=== PATIENT | male | born 1935 | race Caucasian/White ===

== ENCOUNTER 2022-03-01 15:59 | Inpatient (IN) ==
[2022-03-01] MEDS ORDERED: ONDANSETRON 4 MG/2 ML VIAL IV ONE (18:06)
[2022-03-01] MEDS ORDERED: HYDROmorphone 1 MG/1 ML SYRINGE IV STA (18:06)
[2022-03-01] MEDS ORDERED: HYDROmorphone 1 MG/1 ML SYRINGE IV PRN (20:13)
[2022-03-01] MEDS ORDERED: ACETAMINOPHEN 325 MG TABLET PO PRN (20:13)
[2022-03-01] MEDS ORDERED: ONDANSETRON 4 MG/2 ML VIAL IV PRN (20:13)
[2022-03-01] MEDS: LACTATED RINGERS 1,000 ML IV SCH (20:35)
[2022-03-02] MEDS: carvediloL 12.5 MG TABLET PO SCH ×3 (01:02→21:06)
[2022-03-02] MEDS: ATORVASTATIN 40 MG TABLET PO SCH ×2 (01:02→21:06)
[2022-03-02] MEDS: PANTOPRAZOLE 40 MG TABLET PO SCH (09:06)
[2022-03-02] MEDS: FUROSEMIDE 40 MG TABLET PO SCH (09:06)
[2022-03-02] MEDS: ASPIRIN EC 81 MG TABLET PO SCH (09:06)
[2022-03-02 14:02] LABS: Arterial Base Excess iSTAT 1 MMOL/L (-2.5-2.5); Arterial Bicarbonate iSTAT 25.6 MMOL/L (20-26); Arterial O2 Saturation iSTAT 92 % (95-100); Arterial PCO2 iSTAT 40 MM HG (35-48); Arterial PO2 iSTAT 64 MM HG (80-95); Arterial Total CO2 iSTAT 27 MMO/L (23-27)
[2022-03-03 06:02] LABS: Basophils % 0.5 % (0.0-0.8); Eosinophils # 0.1 10*3/uL (0.0-0.87); Eosinophils % 0.8 % (0.00-10.9); Hematocrit 37.2 VOL% (42.0-52.0); Hemoglobin 12.3 GM/DL (14.0-18.0); Immature Granulocytes % 0.4 %; Immature Granulocytes Absolute 0.03 #; Lymphocytes # 1.3 10*3/uL (1.4-4.0); Lymphocytes % 18.3 % (21.2-54.2); Mean Corpuscular HGB Conc 33.1 GM/DL (32-36); Mean Platelet Volume 11.4 FL (9.6-12.0); Monocytes # 0.8 10*3/uL (0.11-0.8); Platelet Count 135 T/CUMM (130-400); Red Blood Count 3.72 MC/CUMM (3.8-5.5); Red Cell Distribution Width 13.5 % (9.3-17.3); White Blood Count 7.3 T/CUMM (4-12)
[2022-03-03 06:09] LABS: Osmolality,Calculated 278.7 MOS/KG (273-304); Potassium 3.8 MMOL/L (3.5-5.1)
[2022-03-03] MEDS: FUROSEMIDE 40 MG TABLET PO SCH (09:18)
[2022-03-03] MEDS: carvediloL 12.5 MG TABLET PO SCH ×2 (09:18→21:39)
[2022-03-03] MEDS: PANTOPRAZOLE 40 MG TABLET PO SCH (09:18)
[2022-03-03] MEDS: ASPIRIN EC 81 MG TABLET PO SCH (09:18)
[2022-03-03] MEDS: KETOROLAC 15 MG/1 ML VIAL IV SCH ×3 (09:19→21:39)
[2022-03-03] MEDS: LACTATED RINGERS 1,000 ML IV SCH ×2 (09:38→12:56)
[2022-03-03 11:34] LABS: Anisocytosis 1+
[2022-03-03 11:35] LABS: Platelet Estimate Adequate
[2022-03-03] MEDS: ATORVASTATIN 40 MG TABLET PO SCH (21:39)
[2022-03-04] MEDS: KETOROLAC 15 MG/1 ML VIAL IV SCH ×4 (04:11→20:06)
[2022-03-04 05:41] LABS: Basophils # 0.1 10*3/uL (0.0-0.2); Basophils % 0.7 % (0.0-0.8); Eosinophils # 0.1 10*3/uL (0.0-0.87); Eosinophils % 0.8 % (0.00-10.9); Hematocrit 34.1 VOL% (42.0-52.0); Hemoglobin 11.6 GM/DL (14.0-18.0); Immature Granulocytes % 0.5 %; Immature Granulocytes Absolute 0.04 #; Lymphocytes # 1.3 10*3/uL (1.4-4.0); Lymphocytes % 16.8 % (21.2-54.2); Mean Corpuscular Volume 98.8 FL (87-102); Mean Platelet Volume 11.5 FL (9.6-12.0); Monocytes # 0.8 10*3/uL (0.11-0.8); Monocytes % 10.4 % (1.7-12.7); Neutrophils % 70.8 % (38.7-73.9); Platelet Count 133 T/CUMM (130-400); Red Blood Count 3.45 MC/CUMM (3.8-5.5); Red Cell Distribution Width 13.2 % (9.3-17.3); White Blood Count 7.4 T/CUMM (4-12)
[2022-03-04 05:52] LABS: Calcium 8.6 MG/DL (8.5-10.1); Osmolality,Calculated 281.5 MOS/KG (273-304); Potassium 3.8 MMOL/L (3.5-5.1)
[2022-03-04] MEDS: carvediloL 12.5 MG TABLET PO SCH ×2 (09:14→20:05)
[2022-03-04] MEDS: PANTOPRAZOLE 40 MG TABLET PO SCH (09:14)
[2022-03-04] MEDS: ASPIRIN EC 81 MG TABLET PO SCH (09:15)
[2022-03-04] MEDS: FUROSEMIDE 40 MG TABLET PO SCH (09:15)
[2022-03-04] MEDS ORDERED: LACTULOSE 20 GM/30 ML UDCUP PO ONE (17:00)
[2022-03-04] MEDS: LACTATED RINGERS 1,000 ML IV SCH (19:29)
[2022-03-04] MEDS: ATORVASTATIN 40 MG TABLET PO SCH (20:05)
[2022-03-05] MEDS: KETOROLAC 15 MG/1 ML VIAL IV SCH ×2 (02:58→09:25)
[2022-03-05] MEDS: LACTATED RINGERS 1,000 ML IV SCH (04:00)
[2022-03-05 04:50] LABS: Basophils # 0.1 10*3/uL (0.0-0.2); Basophils % 0.7 % (0.0-0.8); Eosinophils # 0.1 10*3/uL (0.0-0.87); Eosinophils % 1.2 % (0.00-10.9); Hematocrit 34.3 VOL% (42.0-52.0); Hemoglobin 11.6 GM/DL (14.0-18.0); Immature Granulocytes % 0.4 %; Immature Granulocytes Absolute 0.03 #; Lymphocytes # 1.3 10*3/uL (1.4-4.0); Lymphocytes % 16.7 % (21.2-54.2); Mean Corpuscular HGB Conc 33.8 GM/DL (32-36); Mean Platelet Volume 11.3 FL (9.6-12.0); Monocytes # 0.7 10*3/uL (0.11-0.8); Monocytes % 8.8 % (1.7-12.7); Neutrophils % 72.2 % (38.7-73.9); Platelet Count 141 T/CUMM (130-400); Red Cell Distribution Width 13.4 % (9.3-17.3); White Blood Count 7.5 T/CUMM (4-12)
[2022-03-05 05:05] LABS: Calcium 8.7 MG/DL (8.5-10.1); Osmolality,Calculated 282.5 MOS/KG (273-304); Potassium 3.8 MMOL/L (3.5-5.1)
[2022-03-05] MEDS: FUROSEMIDE 40 MG TABLET PO SCH (09:27)
[2022-03-05] MEDS: PANTOPRAZOLE 40 MG TABLET PO SCH (09:27)
[2022-03-05] MEDS: carvediloL 12.5 MG TABLET PO SCH (09:27)
[2022-03-05] MEDS: ASPIRIN EC 81 MG TABLET PO SCH (09:27)
[2022-03-05 11:59] VITALS: BP 153/67
== END 2022-03-05 14:39 | disposition home or self-care (01) | DRG 185 ==
LOC: N.ED 15:59 → N.5E 15:59
PROVIDERS: ADMIT Surgery; ATTEND Surgery